=== PATIENT | male | born 1955 | race African-American/Black ===

== ENCOUNTER 2016-04-12 17:40 | Emergency (ER) | payer OTHER ==
[~2016-04-12] VITALS: Ht 185.4 cm; Wt 158.8 kg
[~2016-04-12 17:40] MED LIST: ASPI325T4 PO; LISI2.5T PO; SIMV10TA3 PO; SITA1TAB11 PO
[2016-04-12 18:52] LABS: BASO % 1 % (0-3); EOS % 9 % (0-3); HEMATOCRIT 43.5 % (39.0-53.0); HEMOGLOBIN 14.7 g/dL (13.0-17.5); LYMPH # 0.7 x10^3/uL (1.0-4.8); LYMPH % 10 % (24-48); MEAN CORPUSCULAR HEMOGLOBIN 30 pg (25-35); MEAN CORPUSCULAR HGB CONC 34 g/dL (31-37); MEAN CORPUSCULAR VOLUME 88 fL (79-100); MONO % 16 % (0-9); NEUT % 65 % (31-73); PLATELET COUNT 254 x10^3/uL (140-400); RED BLOOD COUNT 4.97 x10^6/uL (4.30-5.70); RED CELL DISTRIBUTION WIDTH 13.9 % (11.5-14.5); WHITE BLOOD COUNT 7.1 x10^3/uL (4.0-11.0)
[2016-04-12 19:04] LABS: CALCIUM 9.7 mg/dL (8.5-10.1); CREATININE 1.2 mg/dL (0.7-1.3); GFR 75.2; POTASSIUM 3.8 mmol/L (3.5-5.1)
[2016-04-12 19:10] LABS: ALBUMIN 3.7 g/dL (3.4-5.0); ALBUMIN/GLOBULIN RATIO 0.9 (1.0-1.7); TOTAL BILIRUBIN 0.3 mg/dL (0.2-1.0); TOTAL PROTEIN 7.7 g/dL (6.4-8.2)
[2016-04-12 19:41] LABS: CKMB INDEX 0.5 % (0-4); CKMB MASS 1.5 ng/mL (0.0-3.6)
[2016-04-12 20:03] VITALS: BP 155/73
--- NOTE | 2016-04-12 20:08 | PHYS DOC ---
Past Medical History Past Medical History: Diabetes-Type I, High Cholesterol, Hypertension, [place] Past Surgical History: No Surgical History, Other Additional Past Surgical Histo: defib unit Alcohol Use: None Drug Use: None Adult General Chief Complaint Chief Complaint: CHEST PAIN HPI HPI Patient is a 60 year old male who presents with complaint of generalized weakness and chest pressure. Patient states that he was feeling at his baseline state of health when he started laughing at around 5:00 while talking with his family. Patient states that this caused him to have a coughing episode. Patient has had similar episodes in the past. Patient states that this coughing episode caused him to temporarily pass out. When the patient awoke, he stated that he felt chest pressure and felt generalized weakness at that time. The symptoms continued to last over approximately 15 minutes, thus EMS was called and patient was brought to the emergency department. Upon arrival to the emergency department, patient states his symptoms have completely resolved. Patient has had history of myocardial infarction. The patient states that he wanted to make sure that he did not have a heart attack. Review of Systems Review of Systems Constitutional: Denies fever or chills [] Eyes: Denies change in visual acuity, redness, or eye pain [] HENT: Denies nasal congestion or sore throat [] Respiratory: Denies cough or shortness of breath [] Cardiovascular: Chest pressure, now resolved, syncope [] GI: Denies abdominal pain, nausea, vomiting, bloody stools or diarrhea [] : Denies dysuria or hematuria [] Musculoskeletal: Denies back pain or joint pain [] Integument: Denies rash or skin lesions [] Neurologic: Denies headache, focal weakness or sensory changes [] Endocrine: Denies polyuria or polydipsia [] Allergies Allergies Allergies Coded Allergies Type Severity Reaction Last Updated Verified No Known Drug Allergies 01/22/14 No Physical Exam Physical Exam Constitutional: Alert, obese, afebrile, no acute distress. [] HENT: Normocephalic, atraumatic, bilateral external ears normal, oropharynx moist, no oral exudates, nose normal. [] Eyes: PERRLA, EOMI, conjunctiva normal, no discharge. [] Neck: Normal range of motion, no tenderness, supple, no stridor. [] Cardiovascular:Heart rate regular rhythm, no murmur [] Lungs & Thorax: Bilateral breath sounds clear to auscultation [] Abdomen: Bowel sounds normal, soft, no tenderness, no masses, no pulsatile masses. [] Skin: Warm, dry, no erythema, no rash. [] Back: No tenderness, no CVA tenderness. [] Extremities: No tenderness, no cyanosis, no clubbing, ROM intact, no edema. [] Neurologic: Alert and oriented X 3, normal motor function, normal sensory function, no focal deficits noted. [] Current Patient Data Vital Signs Vital Signs Date Time Temp Pulse Resp B/P Pulse Ox O2 Delivery O2 Flow Rate FiO2 04/12/16 17:58 98.6 74 16 164/77 96 Room Air 98.6 Lab Values Laboratory Tests Test 04/12/16 18:20 White Blood Count 7.1x10^3/uL (4.0-11.0) Red Blood Count 4.97x10^6/uL (4.30-5.70) Hemoglobin 14.7g/dL (13.0-17.5) Hematocrit 43.5% (39.0-53.0) Mean Corpuscular Volume 88fL (79-100) Mean Corpuscular Hemoglobin 30pg (25-35) Mean Corpuscular Hemoglobin Concent 34g/dL (31-37) Red Cell Distribution Width 13.9% (11.5-14.5) Platelet Count 254x10^3/uL (140-400) Neutrophils (%) (Auto) 65% (31-73) Lymphocytes (%) (Auto) 10% (24-48) L Monocytes (%) (Auto) 16% (0-9) H Eosinophils (%) (Auto) 9% (0-3) H Basophils (%) (Auto) 1% (0-3) Neutrophils # (Auto) 4.6x10^3uL (1.8-7.7) Lymphocytes # (Auto) 0.7x10^3/uL (1.0-4.8) L Monocytes # (Auto) 1.1x10^3/uL (0.0-1.1) Eosinophils # (Auto) 0.6x10^3/uL (0.0-0.7) Basophils # (Auto) 0.0x10^3/uL (0.0-0.2) Sodium Level 142mmol/L (136-145) Potassium Level 3.8mmol/L (3.5-5.1) Chloride Level 105mmol/L (98-107) Carbon Dioxide Level 27mmol/L (21-32) Anion Gap 10 (6-14) Blood Urea Nitrogen 17mg/dL (8-26) Creatinine 1.2mg/dL (0.7-1.3) Estimated GFR (Cockcroft-Gault) 75.2 BUN/Creatinine Ratio 14 (6-20) Glucose Level 126mg/dL (70-99) H Calcium Level 9.7mg/dL (8.5-10.1) Total Bilirubin 0.3mg/dL (0.2-1.0) Aspartate Amino Transferase (AST) 25U/L (15-37) Alanine Aminotransferase (ALT) 39U/L (16-63) Alkaline Phosphatase 49U/L (46-116) Creatine Kinase 291U/L (39-308) Creatine Kinase MB (Mass) 1.5ng/mL (0.0-3.6) Creatine Kinase MB Relative Index 0.5% (0-4) Troponin I Quantitative < 0.017ng/mL (0.000-0.055) GA-Xee-E-Type Natriuretic Peptide 99pg/mL (0-124) Total Protein 7.7g/dL (6.4-8.2) Albumin 3.7g/dL (3.4-5.0) Albumin/Globulin Ratio 0.9 (1.0-1.7) L Laboratory Tests 04/12/16 18:20 Laboratory Tests 04/12/16 18:20 EKG EKG Interpreted by me: Heart rate 75, sinus rhythm, rightward axis, no acute ST/T- wave abnormalities present [] Radiology/Procedures Radiology/Procedures One view AP chest x-ray interpreted by me: No infiltrate, no effusion, mild pulmonary vascular congestion[] Course & Med Decision Making Course & Med Decision Making Pertinent Labs and Imaging studies reviewed. (See chart for details) Patient was observed in the emergency department with no remarkable events to report. Patient states that he feels that his baseline state of health. The patient's lab work does not show any evidence for acute [place]. The patient's episode is consistent with a vasovagal response to his coughing episode. The patient was ambulated in the emergency department without difficulty. Patient denies any shortness breath or chest pain at this time. Advised patient to follow-up with Dr. Schmidt of cardiology in the next 2-3 days. Advised return emergency department for any worsening symptoms. Patient voiced understanding and in agreement with treatment plan. Dragon Disclaimer Dragon Disclaimer This electronic medical record was generated, in whole or in part, using a voice recognition dictation system. Departure Departure Impression: Primary Impression: Vasovagal episode Disposition: HOME, SELF-CARE Condition: IMPROVED Referrals: NITO GAITAN (PCP) Patient Instructions: Syncope Additional Instructions: Follow-up with your primary doctor in 2-3 days. Return to the emergency department for any worsening symptoms. JYOTHI MAYO MD Apr 12, 2016 20:08
--- NOTE | 2016-04-13 07:47 | EKG ---
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
--- NOTE | 2016-04-13 09:01 | RAD ---
INDICATION: chest pain COMPARISON: 10/13/2011 FINDINGS: Single view of chest obtained. Pacemaker again seen. Cardiac silhouette is prominent. Repeat demonstration of enlargement of the bilateral hilum. No definite new region of focal airspace consolidation. IMPRESSION: No definite focal airspace consolidation. Bilateral enlargement of the pulmonary hilum is again seen.
== END 2016-04-12 20:24 | disposition home or self-care (01) ==
LOC: ER 17:40
DX: R55 Syncope and collapse (principal); R05 Cough; E66.9 Obesity, unspecified; I25.2 Old myocardial infarction; I10 Essential (primary) hypertension; E10.9 Type 1 diabetes mellitus without complications; E78.00 Pure hypercholesterolemia, unspecified; Z68.42 Body mass index [BMI] 45.0-49.9, adult; Z95.810 Presence of automatic (implantable) cardiac defibrillator
CPT/HCPCS: 36415; 71010; 80053; 82553; 83880; 84484; 85027; 93005; 99285-25

== ENCOUNTER → 2017-02-06 | Outpatient (CLI) | payer OTHER ==
[~2017-02-06] MED LIST changes: -ASPI325T4 PO; +ASPI325T8 PO
--- NOTE | 2017-02-07 13:23 | SLEEP ---
DATE OF STUDY: 02/06/2017 ATTENDING PHYSICIAN: Dr. Nito Darling. The patient is a 61-year-old who weighs 345 pounds with a BMI of 44. The patient had a sleep study in 2007 and was found to have severe sleep apnea at an AHI of 74. Optimum CPAP pressure was not achieved and he was placed on an auto-titrating BiPAP with a maximum IPAP of 20 and a minimum EPAP of 14. Another study was requested to improve his daytime somnolence and to assess the efficacy of current BiPAP pressure. During the night study, the patient spent 429 minutes in bed and slept for 359 minutes with a sleep efficiency of 84%. Sleep latency was 20 minutes with a REM latency of 152 minutes. Overall, sleep architecture showed increased stage I sleep, normal stage II sleep, normal slow wave and reduced REM sleep. EKG monitoring revealed normal sinus rhythm with a few PACs. Average heart rate of 75 beats per minute. PLMs were seen at index of 20 per hour and 1 per hour caused EEG arousals. The patient was started on BiPAP at a pressure of 20/14 and pressure was titrated all the way up to 30/23. At this pressure, the patient slept for 46 minutes. The patient had supine as well as REM sleep. The patient's AHI was reduced to 1 per hour and oxygen saturation remained above 92%. The patient used a medium size full face mask. IMPRESSION: 1. Severe sleep diagnosed by previous sleep study. 2. Mild to moderate periodic limb movements without any significant EEG arousals. This does not need to be treated. RECOMMENDATIONS: 1. BiPAP at 30/23 should be used on a nightly basis. 2. Follow up in 4-6 weeks to assess compliance with BiPAP and to document clinical improvement. 3. Weight loss is strongly emphasized. The patient is currently requiring a higher BiPAP pressure. With weight loss in the future, the BiPAP pressure requirement can improve and can provide better compliance as well. 4. Avoid [employer] WORKER depressants. 5. Caution regarding driving until symptoms of sleep apnea resolve with the use of BiPAP. LARRY AGUILAR MD DR: JIM/elizabeth JOB#: [id number] / [id number] NITO Murrieta
== END | disposition home or self-care (01) ==
LOC: RT 18:28
PROVIDERS: ATTEND Internal Medicine Critical Care Medicine
DX: G47.33 Obstructive sleep apnea (adult) (pediatric) (principal)
CPT/HCPCS: 95811

== ENCOUNTER → 2017-02-22 | Day surgery (SDC) | payer OTHER ==
[~2017-02-22] MED LIST changes: -ASPI325T8 PO; +HYDROmorphone 2 MG/ML VIAL IV; +IV RINGERS,LACTATED 1000ML 1,000 ML IV; +LIDOCAINE 1% PF 2 ML VIAL. ID; -LISI2.5T PO; +MIDAZOLAM HCL/PF 2 MG/2 ML VIAL. IV; +MORPHINE SULFATE 2 MG/ML DISP.SYRIN. IV; +ONDANSETRON PF 4 MG/2 ML VIAL. IV; +PROCHLORPERAZINE 10 MG/2 ML VIAL. IV; +PROPOFOL 20 ML IV; -SIMV10TA3 PO; -SITA1TAB11 PO; +fentaNYL PF VIAL 100 MCG/2 ML VIAL IV
[2017-02-22] MEDS: IV RINGERS,LACTATED 1000ML 1,000 ML IV (07:00)
[2017-02-22 12:00] LABS: POC GLUCOSE 166 mg/dL (70-99)
== END | disposition home or self-care (01) ==
LOC: ENDOS 11:10
DX: Z12.11 Encounter for screening for malignant neoplasm of colon (principal); K64.0 First degree hemorrhoids; I50.9 Heart failure, unspecified; M19.90 Unspecified osteoarthritis, unspecified site; I25.2 Old myocardial infarction; Z82.3 Family history of stroke; Z82.49 Family history of ischemic heart disease and other diseases of the circulatory system; Z79.899 Other long term (current) drug therapy; Z95.0 Presence of cardiac pacemaker
CPT/HCPCS: 45378; 82962; J2704